=== PATIENT | female | born 1985 | race African-American/Black ===

== ENCOUNTER 2017-08-14 21:16 | Emergency (ER) | payer OTHER ==
[~2017-08-14] VITALS: Ht 180.3 cm; Wt 102.7 kg
[2017-08-14 21:16] VITALS: BP 110/72
[~2017-08-14 21:16] MED LIST: CEPH500T PO
[2017-08-14] MEDS ORDERED: MOME17SP NS (23:24)
[2017-08-14] MEDS ORDERED: LORA10TA3 PO (23:24)
[2017-08-14] MEDS ORDERED: IBUPROFEN 600 MG TABLET. PO ONE (23:30)
--- NOTE | 2017-08-15 01:36 | ED.ADGEN ---
Past History Past Medical History: No Pertinent History Past Surgical History: Appendectomy Alcohol Use: None Drug Use: None Adult General HPI HPI Patient is a 32-year-old woman, with no significant past medical history, who is currently 11 weeks , who presents to the emergency department with a complaint of nasal congestion, sore throat, and ear pain greatest in the right side over the past several days. Patient states she is also experiencing diminished hearing on this side. Patient states that she has a sick contact in her daughter. She states she has not taken any medications prior coming to the ED as she tries to avoid medications in general, especially she is currently breast-feeding. She denies any chest pain or shortness of breath, any difficulty swallowing or breathing, any nausea or vomiting, any diarrhea, any rashes, any swelling of the extremities. No recent travel or surgery. Review of Systems Review of Systems Constitutional: Denies fever or chills [] Eyes: Denies change in visual acuity, redness, or eye pain [] HENT: Nasal congestion, sore throat, any ear pain right-sided greater than left over the past several days. Respiratory: Denies cough or shortness of breath [] Cardiovascular: No additional information not addressed in HPI [] GI: Denies abdominal pain, nausea, vomiting, bloody stools or diarrhea [] : Denies dysuria or hematuria [] Musculoskeletal: Denies back pain or joint pain [] Integument: Denies rash or skin lesions [] Neurologic: Denies headache, focal weakness or sensory changes [] Endocrine: Denies polyuria or polydipsia [] Current Medications Current Medications Current Medications Medications (Trade) Dose Ordered Sig/Alistair Start Time Stop Time Status Last Admin Dose Admin Ibuprofen (Motrin) 600 mg 1X ONCE 08/14/17 23:30 08/14/17 23:31 DC 08/14/17 23:30 600 MG Allergies Allergies Allergies Coded Allergies Type Severity Reaction Last Updated Verified No Known Drug Allergies 02/09/17 No Physical Exam Physical Exam Constitutional: Well developed, well nourished, no acute distress, non-toxic appearance. [] HENT: Normocephalic, atraumatic, bilateral external ears normal, oropharynx moist, oropharynx is mildly injected, no exudate identified, patient with white nasal drainage with nasal congestion and swelling of the turbinates bilaterally , patient with erythema noted the TMs bilaterally, right-sided greater than left , without bulging or evidence of a large effusion, external canal is normal, no oral exudates, nose normal. [] Eyes: PERRLA, EOMI, conjunctiva normal, no discharge. [] Neck: Normal range of motion, no tenderness, supple, no stridor. [] Cardiovascular:Heart rate regular rhythm, no murmur, S1, S2, rubs or gallops. [] Lungs & Thorax: Bilateral breath sounds clear to auscultation, no wheezing, rhonchi, rales. No chest or crepitus or tenderness. [] Abdomen: Bowel sounds normal, soft, no tenderness, no rebound, rigidity, no guarding, no masses, no pulsatile masses. [] Skin: Warm, dry, no erythema, no rash. [] Back: No tenderness, no CVA tenderness. [] Extremities: No tenderness, no cyanosis, no clubbing, ROM intact, no edema. Negative Homans sign.[] Neurologic: Alert and oriented X 3, normal motor function, normal sensory function, no focal deficits noted. [] Psychologic: Affect normal, judgement normal, mood normal. [] Current Patient Data Vital Signs Vital Signs Date Time Temp Pulse Resp B/P (MAP) Pulse Ox O2 Delivery O2 Flow Rate FiO2 08/14/17 21:16 97.9 63 14 98 Room Air EKG EKG Not indicated.[] Radiology/Procedures Radiology/Procedures Not indicated.[] Course & Med Decision Making Course & Med Decision Making Pertinent Labs and Imaging studies reviewed. (See chart for details) Patient's examination is consistent with a viral illness causing nasal congestion and resulting ear discomfort. Patient does not have any history of seasonal allergies. Patient wishes to continue breast-feeding, I did discuss with her use of a nasal corticosteroid such as Nasonex, to reduce nasal congestion, and allowing increased drainage from her ears bilaterally, no indication for antibiotics based the patient's evaluation. I did discuss this with pharmacy, who agreed that with the low systemic absorption, that needs next would be the best choice for an inhaled corticosteroid, and we also discussed use of loratadine, appropriate for a breast-feeding patient. Additionally, patient instructed to use acetaminophen, and ibuprofen as directed on the packaging, to stay well-hydrated. We did discuss concerning symptoms that prompt return. As these medications are not available emergency department, patient was given a prescription for Nasonex loratadine, was given a dose of ibuprofen in the ED. Patient voiced understanding with instructions and concerning symptoms that would prompt return to the ED, discharged home in stable condition with plan, prescriptions, and precautions as stated. Final Impression Final Impression [] Problems: Dragon Disclaimer Dragon Disclaimer This electronic medical record was generated, in whole or in part, using a voice recognition dictation system. Departure: Impression: Primary Impression: Otalgia of both ears Additional Impression: Viral illness Disposition: HOME, SELF-CARE Condition: IMPROVED Scripts Mometasone Furoate (NASONEX) 17 Gm Terril.pump 1 SPR NS DAILY, #1 INHALER 0 Refills Prov: BARBARA BECERRA DO 08/14/17 Loratadine (LORATADINE) 10 Mg Tablet 10 MG PO QHS Y for NASAL CONGESTION, #14 TAB Prov: BARBARA BECERRA DO 08/14/17 BARBARA BECERRA DO Aug 15, 2017 01:36
== END 2017-08-14 23:35 | disposition home or self-care (01) ==
LOC: ER 21:16
DX: H92.03 Otalgia, bilateral (principal); B34.9 Viral infection, unspecified
CPT/HCPCS: 99283

== ENCOUNTER 2017-10-02 12:22 | Emergency (ER) | payer OTHER ==
[~2017-10-02] VITALS: Ht 180.3 cm; Wt 102.7 kg
[~2017-10-02 12:22] MED LIST changes: +LORA10TA3 PO; +MOME17SP NS
[2017-10-02 13:11] LABS: BASO # 0.1 x10^3/uL (0.0-0.2); BASO % 1 % (0-3); EOS # 0.1 x10^3/uL (0.0-0.7); EOS % 1 % (0-3); HEMATOCRIT 40.2 % (36.0-47.0); HEMOGLOBIN 14.1 g/dL (12.0-15.5); LYMPH # 2.7 x10^3/uL (1.0-4.8); LYMPH % 30 % (24-48); MEAN CORPUSCULAR HEMOGLOBIN 33 pg (25-35); MEAN CORPUSCULAR HGB CONC 35 g/dL (31-37); MEAN CORPUSCULAR VOLUME 94 fL (79-100); MONO # 0.5 x10^3/uL (0.0-1.1); MONO % 6 % (0-9); NEUT # 5.7 x10^3uL (1.8-7.7); NEUT % 62 % (31-73); PLATELET COUNT 240 x10^3/uL (140-400); RED BLOOD COUNT 4.29 x10^6/uL (3.50-5.40); RED CELL DISTRIBUTION WIDTH 13.9 % (11.5-14.5); WHITE BLOOD COUNT 9.1 x10^3/uL (4.0-11.0)
--- NOTE | 2017-10-02 13:58 | RAD ---
Transabdominal and transvaginal sonography of the pelvis History: bleeding. Patient had a baby 4 months again Transabdominal sonography: The uterus is in neutral position. The endometrial canal is poorly visualized. Therefore, transvaginal sonography will be performed. Neither ovary is visualized. No adnexal masses are evident. Transvaginal sonography: The endometrial canal measures 6 mm in thickness and is normal. No uterine mass or fibroid is seen. Small amount of physiologic free fluid is seen within the cul-de-sac. The right ovary measures 2.4 cm and 1.5 cm and 1.7 cm in size and is normal. Color Doppler flow is seen within the right ovary. The left ovary measures 1.7 cm and 1.2 cm and 1.7 cm in size and is normal. Color Doppler flow is seen within the left ovary. No adnexal mass is seen. IMPRESSION: Unremarkable pelvic sonogram.
--- NOTE | 2017-10-02 14:20 | PHYS DOC ---
Adult General Chief Complaint Chief Complaint vaginal bleeding HPI HPI 32-year-old female presents with heavy vaginal bleeding. 32-year-old 4 month status post spontaneous vaginal delivery of her second child. She began her period yesterday and has been having brisk vaginal bleeding since then. No other complaints. No pain. She's not been sexually active during this last 4 months. No discharge. She does not feel lightheaded or dizzy. Symptoms are constant. No worsening or improving. No exacerbating symptoms. Review of Systems Review of Systems Constitutional: Denies fever or chills Eyes: Denies change in visual acuity, redness, or eye pain HENT: Denies nasal congestion or sore throat Respiratory: Denies cough or shortness of breath Cardiovascular: No additional information not addressed in HPI GI: Denies abdominal pain, nausea, vomiting, bloody stools or diarrhea : Denies dysuria or hematuria Musculoskeletal: Denies back pain or joint pain Integument: Denies rash or skin lesions Neurologic: Denies headache, focal weakness or sensory changes Endocrine: Denies polyuria or polydipsia Allergies Allergies Allergies Coded Allergies Type Severity Reaction Last Updated Verified No Known Drug Allergies 02/09/17 No Physical Exam Physical Exam Constitutional: Well developed, well nourished, no acute distress, non-toxic appearance. HENT: Normocephalic, atraumatic, Eyes: PERRLA, EOMI, conjunctiva normal, no discharge. Neck: Normal range of motion, no tenderness, supple, no stridor. Cardiovascular:Heart rate regular rhythm, no murmur Lungs & Thorax: Bilateral breath sounds clear to auscultation Abdomen: Bowel sounds normal, soft, no tenderness, no masses, no pulsatile masses. : Pelvic speculum exam: small amount of blood in vault. No active bleeding. Otherwise normal. Skin: Warm, dry, no erythema, no rash. Back: No tenderness, no CVA tenderness. Extremities: No tenderness, no cyanosis, no clubbing, ROM intact, no edema. Neurologic: Awake and alert talking moving all 4 extremities appropriately. Psychologic: Affect normal, judgement normal, mood normal. Current Patient Data Vital Signs Vital Signs Date Time Temp Pulse Resp B/P (MAP) Pulse Ox O2 Delivery O2 Flow Rate FiO2 10/02/17 14:50 69 20 109/67 (81) 97 Room Air 10/02/17 12:22 97.9 Lab Results Laboratory Tests Test 10/02/17 12:58 10/02/17 13:07 White Blood Count 9.1 x10^3/uL (4.0-11.0) Red Blood Count 4.29 x10^6/uL (3.50-5.40) Hemoglobin 14.1 g/dL (12.0-15.5) Hematocrit 40.2 % (36.0-47.0) Mean Corpuscular Volume 94 fL (79-100) Mean Corpuscular Hemoglobin 33 pg (25-35) Mean Corpuscular Hemoglobin Concent 35 g/dL (31-37) Red Cell Distribution Width 13.9 % (11.5-14.5) Platelet Count 240 x10^3/uL (140-400) Neutrophils (%) (Auto) 62 % (31-73) Lymphocytes (%) (Auto) 30 % (24-48) Monocytes (%) (Auto) 6 % (0-9) Eosinophils (%) (Auto) 1 % (0-3) Basophils (%) (Auto) 1 % (0-3) Neutrophils # (Auto) 5.7 x10^3uL (1.8-7.7) Lymphocytes # (Auto) 2.7 x10^3/uL (1.0-4.8) Monocytes # (Auto) 0.5 x10^3/uL (0.0-1.1) Eosinophils # (Auto) 0.1 x10^3/uL (0.0-0.7) Basophils # (Auto) 0.1 x10^3/uL (0.0-0.2) POC Urine HCG, Qualitative hcg negative (Negative) EKG EKG [] Radiology/Procedures Radiology/Procedures []PROCEDURE: US PELVIS W/TV Transabdominal and transvaginal sonography of the pelvis History: bleeding. Patient had a baby 4 months again Transabdominal sonography: The uterus is in neutral position. The endometrial canal is poorly visualized. Therefore, transvaginal sonography will be performed. Neither ovary is visualized. No adnexal masses are evident. Transvaginal sonography: The endometrial canal measures 6 mm in thickness and is normal. No uterine mass or fibroid is seen. Small amount of physiologic free fluid is seen within the cul-de-sac. The right ovary measures 2.4 cm and 1.5 cm and 1.7 cm in size and is normal. Color Doppler flow is seen within the right ovary. The left ovary measures 1.7 cm and 1.2 cm and 1.7 cm in size and is normal. Color Doppler flow is seen within the left ovary. No adnexal mass is seen. IMPRESSION: Unremarkable pelvic sonogram. DICTATED AND SIGNED BY: SHERRY ISAACS MD DATE: 10/02/17 1158 Impressions: menorrhagia Course & Med Decision Making Course & Med Decision Making Pertinent Labs and Imaging studies reviewed. (See chart for details) Stable H/H on CBC. Normal sono. Will treat with Provera 10 mg daily for 10 days with outpatient follow up. Clear return warnings. D/W / Jolene who recommends Micranor 30 days and follow up in 2 weeks instead of Provera. Final Impression Final Impression menorrhagia[] Problems: Dragon Disclaimer Dragon Disclaimer This electronic medical record was generated, in whole or in part, using a voice recognition dictation system. VERA LAYTON MD Oct 02, 2017 14:20
[2017-10-02] MEDS ORDERED: NORE0.359 PO (14:33)
[2017-10-02 14:50] VITALS: BP 109/67
== END 2017-10-02 14:48 | disposition home or self-care (01) ==
LOC: ER 12:22
DX: N92.0 Excessive and frequent menstruation with regular cycle (principal); Z98.890 Other specified postprocedural states
CPT/HCPCS: 36415; 76830; 76856; 81025; 85025; 99285-25

== ENCOUNTER 2017-11-04 20:15 | Emergency (ER) | payer OTHER ==
[~2017-11-04] VITALS: Ht 180.3 cm; Wt 102.7 kg
[~2017-11-04 20:15] MED LIST changes: +NORE0.359 PO
[2017-11-04] MEDS ORDERED: TETRACAINE 0.5% OPHTH SOLUTION 4ML BOTTLE. OD ONE (21:30)
[2017-11-04] MEDS ORDERED: FLUORESCEIN 1MG EYE STRIP. OD ONE (22:15)
[2017-11-04 22:42] LABS: BASO % 1 % (0-3); EOS # 0.2 x10^3/uL (0.0-0.7); EOS % 2 % (0-3); HEMOGLOBIN 13.2 g/dL (12.0-15.5); LYMPH # 3.5 x10^3/uL (1.0-4.8); LYMPH % 38 % (24-48); MEAN CORPUSCULAR HEMOGLOBIN 32 pg (25-35); MEAN CORPUSCULAR HGB CONC 34 g/dL (31-37); MEAN CORPUSCULAR VOLUME 95 fL (79-100); MONO # 0.6 x10^3/uL (0.0-1.1); MONO % 7 % (0-9); NEUT # 4.9 x10^3uL (1.8-7.7); NEUT % 53 % (31-73); PLATELET COUNT 217 x10^3/uL (140-400); RED BLOOD COUNT 4.12 x10^6/uL (3.50-5.40); RED CELL DISTRIBUTION WIDTH 13.2 % (11.5-14.5); WHITE BLOOD COUNT 9.3 x10^3/uL (4.0-11.0)
[2017-11-04] MEDS ORDERED: IOHEXOL 300 MG/ML 75 ML VIAL. IV ONE (22:45)
[2017-11-04] MEDS ORDERED: KETOROLAC 30 MG/ML VIAL. IV ONE (22:45)
--- NOTE | 2017-11-04 23:25 | RAD ---
CT orbits with contrast 11/04/2017 CLINICAL INDICATION: Right eye pain and pressure. COMPARISON: None. TECHNIQUE: Multiple CT images of the orbits were obtained following the intravenous and ministration of 75 mL Omnipaque 300. *One or more of the following individualized dose reduction techniques were utilized for this examination: 1. Automated exposure control. 2. Adjustment of the mA and/or kV according to patient size. 3. Use of iterative reconstruction technique. FINDINGS: The visualized intracranial structures, left globe and orbit are unremarkable. The intraconal fat is preserved. The right globe is round in configuration. There is asymmetric thinning of the right lens relative to the left compatible with reported cataract surgery. The intraocular muscles are symmetric. The mastoid air cells and paranasal sinuses are well aerated. IMPRESSION: Essentially unremarkable CT examination of the orbits, apart from prior right cataract surgery. Electronically signed by: Saurav Jewell MD (11/04/2017 11:22 PM) [facility]
--- NOTE | 2017-11-04 23:28 | PHYS DOC ---
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 It is very difficult for her to describe the pain, she describes it at times as a foreign body sensation and at other times pressure behind the right eye, describes discomfort with extraocular motion. She denies any visual changes no blurring, halos, flashing lights, or curtains coming down. No photophobia or tearing, no discharge or matting. She says that the onset was gradual and insidious denies welding or exposure to high winds. She has history of cataract removal and that eye. She says today the discomfort has worsened causing a right-sided headache described as moderate and throbbing no exacerbating or relieving factors known. She denies any aura or scotomata no trauma, no nausea vomiting and no pre-arrival treatment. ED vital signs are stable. Timing/Duration: gradual, yesterday Severity: moderate Location: eye (R) Prearrival Treatment: no prearrival treatment Modifying Factors: improves with other Associated Symptoms: other Allergies: Coded Allergies: No Known Drug Allergies (Unverified , 11/04/17) Past Medical History Medical History: no pertinent history Surgical History: appendectomy, other (cataract removal right eye) Social History Smoker: non-smoker Alcohol: none Drugs: none Constitutional: denies chills, denies diaphoresis, denies fever, denies malaise Eyes: denies blindness, denies blurred vision, denies drainage, denies decreased acuity, foreign body sensation, denies inflammation, pain, denies photophobia, denies previous injury, denies shadows, denies tunnel vision, denies vision change, denies contact lenses Ears: denies dizziness, denies pain, denies tinnitus Nose: denies clots, denies congestion, denies epistaxis Mouth: denies pain, denies swelling Throat: denies neck stiffness, denies painful swallowing, denies difficulty with fluids Respiratory: denies cough, denies shortness of breath Cardiovascular: denies chest pain, denies palpitations, denies syncope Gastrointestinal: denies diarrhea, denies nausea, denies vomiting Musculoskeletal: denies back pain, denies joint swelling, denies neck pain Neurological: headache, denies numbness, denies paresthesia, denies weakness Hematologic/Lymphatic: denies blood clots, denies easy bleeding, denies easy bruising Physical Exam General Appearance: WD/WN, mild distress Eyes: right eye other (patient initially states that she had relief with tetracaine drops however within just a few moments states that no relief achieved with the drops.), bilateral eye normal inspection, bilateral eye PERRL , bilateral eye EOMI Nose: normal inspection Mouth/Throat: normal mouth inspection, pharynx normal Neck: full range of motion, supple Cardiovascular/Respiratory: normal peripheral pulses, no respiratory distress Neurologic/Psychiatric: timber sprinkler II-XII nml as tested, no motor/sensory deficits, alert, normal mood/affect, oriented x 3 Skin: normal color, warm/dry Orders, Labs, Meds CBC unremarkable PATIENT: MARY BETH ELIZALDE ACCOUNT: [id number] : 1985 LOCATION: ER AGE: 32 SEX: F EXAM STATUS: REG ER ORD. PHYSICIAN: FAITH VALDEZ DO REASON: Right eye pain, pain w/EOM PROCEDURE: CT ORBITS W/CONTRAST CT orbits with contrast 11/04/2017 CLINICAL INDICATION: Right eye pain and pressure. COMPARISON: None. TECHNIQUE: Multiple CT images of the orbits were obtained following the intravenous and ministration of 75 mL Omnipaque 300. *One or more of the following individualized dose reduction techniques were utilized for this examination: 1. Automated exposure control. 2. Adjustment of the mA and/or kV according to patient size. 3. Use of iterative reconstruction technique. FINDINGS: The visualized intracranial structures, left globe and orbit are unremarkable. The intraconal fat is preserved. The right globe is round in configuration. There is asymmetric thinning of the right lens relative to the left compatible with reported cataract surgery. The intraocular muscles are symmetric. The mastoid air cells and paranasal sinuses are well aerated. IMPRESSION: Essentially unremarkable CT examination of the orbits, apart from prior right cataract surgery. Electronically signed by: Williams Jewell MD (11/04/2017 11:22 PM) [facility] DICTATED AND SIGNED BY: WILLIAMS JEWELL MD DATE: 11/04/17 0513 CC: PCP,UNKNOWN; FAITH VALDEZ DO ~ Patient had a very prolonged ED course due to extremely high ED volume and patient acuity. I discussed negative findings with the patient, I discussed [id number] prescription medications. Discussed signs and symptoms to monitor as well as indications for urgent return to the department. No symptoms consistent with acute angle closure as no vision changes in visual acuity is normal, see nurse' s notes. A Tylenol 3 starter pack dispensed in the emergency department for overnight symptoms and patient will follow-up on Post tomorrow with her PCM or senior medical technologist. She expressed agreement and understanding with the treatment plan. Departure Time of Disposition: 23:36 Disposition: 01 HOME, SELF-CARE Diagnosis: right eye pain NOS, headache Condition: STABLE Patient Instructions: General Headache Without Cause, [id number] Additional Instructions: As discussed no emergent cause for your eye pain or headache is noted from tonight's evaluation. [id number] ibuprofen for baseline discomfort A Tylenol 3 starter pack has been dispensed to you, take one every 6 hours as needed for severe pain. Take with food. Follow-up on Post with your PCM or senior medical technologist tomorrow. Return to ED with new or changing symptoms. FAITH VALDEZ DO Nov 04, 2017 23:28
[2017-11-04] MEDS ORDERED: ACETAMINOPHEN/CODEINE 300/30MG 4TABLET STARTPACK. PO ONE ×2 (23:45→23:59)
[2017-11-05 00:04] VITALS: BP 118/6
== END 2017-11-05 00:04 | disposition home or self-care (01) ==
LOC: ER 20:15
DX: H57.11 Ocular pain, right eye (principal); R51 Headache; Z98.41 Cataract extraction status, right eye
CPT/HCPCS: 36415; 70481; 85025; 96374; 99285; J1885; Q9967